=== PATIENT | female | born 1965 | race Caucasian/White ===

== ENCOUNTER 2020-04-25 13:40 | Emergency (ER) | payer MEDICAID, SELFPAY ==
[2020-04-25 14:04] VITALS: BP 218/118; PULSE 87; RESP 18; TEMP 36.8; O2SAT 100; BMI 23.8
--- NOTE | 2020-04-25 14:14 | W.ED.ABDPA2 ---
Documented by User: LILO Burns 04/25/20 16:46 HPI - Abdominal Pain General: Chief Complaint: Abdominal Pain Stated Complaint: abd pain Time Seen by Provider: 04/25/20 13:44 History of Present Illness: HPI narrative: Patient complains about upper epigastric pain and diarrhea and not able to eat for the last couple days. Said that she was told she had a sluggish gallbladder a few years ago but is never followed up on that. Patient also has a history of uterine polyps and said never anything done about that . Patient also states that she has been having vaginal bleeding for weeks and that before then she had regular periods .she says that smoking irritates her abdominal pain. MD elicited complaint: abdominal pain Onset (ago): day(s) Pain Consistency: constant Location: Epigastric Severity: severe Quality: aching and sharp Migration to: no migration Exacerbating factors: eating Relieving factors: nothing Associated Symptoms: Reports diarrhea; Denies chills and fever(s) Review of Systems Const: Denies: fever(s), chills or body aches Eyes: Denies: change in vision or blurry vision ENMT: Denies: throat pain or nasal congestion Card: Denies: chest pain or dyspnea on exertion Resp: Denies: dyspnea, productive cough or non-productive cough GI: Reports: abdominal pain and diarrhea Musc: Denies: extremity pain Skin/Breast: Denies: rash Neuro: Denies: headache(s) Psych: Denies: anxiety or depression Supa/Lymph: Denies: easy bruising Physical Exam Const: COMMON NORMALS: no acute distress, average body habitus and patient oriented x3 HENMT: COMMON NORMALS: normocephalic HEAD & SCALP: normal to inspection and normocephalic FACE & SINUS: normal facial exam Eye: COMMON NORMALS: conjunctivae normal GENERAL EYE: appearance normal, both eyes and all related structures CONJUNCTIVA: Yes conjunctivae normal Neck/C-Spine: COMMON NORMALS: no JVD Chest: COMMONS NORMALS: normal inspection of the chest Resp: COMMON NORMALS: normal respiratory effort and clear to auscultation bilaterally AUSCULTATION: clear to auscultation bilaterally Cardio: COMMON NORMALS: no JVD, regular rate and regular rhythm RATE: regular rate RHYTHM: regular rhythm GI: COMMON NORMALS: Normal to inspection, nondistended, normoactive bowel sounds present PALPATION: Yes Tenderness to palpation present (GI) (Epigastric) Extremity: COMMON NORMALS: normal to inspection and full ROM Neuro: COMMON NORMALS: patient oriented x3 Course Vital Signs: Vital signs: Vital Signs Temperature 98.2 F 04/25/20 14:04 Pulse Rate 73 04/25/20 17:27 Respiratory Rate 18 04/25/20 14:04 Blood Pressure 219/87 04/25/20 17:27 Pulse Oximetry 99 04/25/20 17:27 MDM - Abdominal Pain MDM Narrative: Medical decision making narrative: Discussed ultrasound results with patient gallbladder looks fine discussed maybe need for gallbladder function test again. Also ultrasound of pelvis uterus shows thickened endometrium talked to her about to follow-up with her family medical provider and seen about given some medication help stop with her continued bleeding and and go over menopause symptoms with her. Talk to patient about the need possibly be on proton pump inhibitor and possibility of an ulcer and possible need EGD done. Turn care over to LILO Liu patient waiting CAT scan presently Lab Data: Labs: Lab Results 04/25/20 04/25/20 04/25/20 Range/Units 14:30 14:30 14:59 WBC 12.4 H (4.0-10.0) 10^3/ uL RBC 6.32 H (4.1-5.3) 10^6/u L Hgb 17.4 H (11.5-15.3) g/dL Hct 52.5 H (37.0-47.0) % MCV 83.1 (81-99) fL MCH 27.5 L (28.0-34.0) pg MCHC 33.1 (30.0-36.0) g/dL RDW 13.8 (12.1-15.1) % Plt Count 349 (130-400) 10^3/c mm MPV 9.7 (7.4-10.4) fL Neut % (Auto) 77.9 % Lymph % (Auto) 15.6 % [place] % (Auto) 4.2 % Eos % (Auto) 1.8 % Baso % (Auto) 0.3 % Neut # (Auto) 9.68 H (1.8-7.7) 10^3/u L Lymph # (Auto) 1.9 (0.8-4.8) 10^3/u L [place] # (Auto) 0.5 (0.2-0.9) 10^3/u L Eos # (Auto) 0.2 (0.0-0.8) 10^3/u L Baso # (Auto) 0.0 (0.0-0.1) 10^3/u L Nucleated RBC % (a uto) 0 % Nucleated RBCs # 0.0 /100WBC Sodium 143 (136-145) mmol/L Potassium 3.7 (3.5-5.1) mmol/L Chloride 105 (98-107) mmol/L Carbon Dioxide 28 (22-29) mmol/L Anion Gap 13.7 (5-19) BUN 18 (6-20) mg/dL Creatinine 0.8 (0.5-0.9) mg/dL GFR Calculation 75.3 L (90-130) mL/min Glucose 129 H (65-115) mg/dL Calculated Osmolal ity 294 (285-295) mOsm/k g Calcium 10.2 (8.5-10.5) mg/dL Total Bilirubin 0.6 (0.15-1.2) mg/dL AST 10 (0-32) U/L ALT 11 (0-33) U/L Alkaline Phosphata se 72 (35-105) IU/L Total Protein 8.0 (6.6-8.7) g/dL Albumin 4.7 (3.5-5.2) g/dL Globulin 3.3 (1.3-4.6) g/dL Lipase 43 (13-60) U/L HCG, Qual Negative (Negative) Urine Color (Yellow) Urine Appearance (CLEAR) Urine pH (5-7) Ur Specific Gravit y (1.005-1.030) Urine Protein (Negative) Urine Glucose (UA) (Normal) Urine Ketones (Negative) Urine Blood (Negative) Urine Nitrate (Negative) Urine Bilirubin (NEGATIVE) Urine Urobilinogen (Negative) mg/dL Ur Leukocyte Mary ase (Negative) Urine RBC (0-2) /hpf Urine WBC (0-5) /hpf Ur Squamous Epith Cells (0-5) Amorphous Sediment Urine Bacteria (NONE) Urine Mucus Blood Type Rho(D) Type Antibody Screen Crossmatch 04/25/20 04/25/20 Range/Units 14:59 15:37 WBC (4.0-10.0) 10^3/ uL RBC (4.1-5.3) 10^6/u L Hgb (11.5-15.3) g/dL Hct (37.0-47.0) % MCV (81-99) fL MCH (28.0-34.0) pg MCHC (30.0-36.0) g/dL RDW (12.1-15.1) % Plt Count (130-400) 10^3/c mm MPV (7.4-10.4) fL Neut % (Auto) % Lymph % (Auto) % [place] % (Auto) % Eos % (Auto) % Baso % (Auto) % Neut # (Auto) (1.8-7.7) 10^3/u L Lymph # (Auto) (0.8-4.8) 10^3/u L [place] # (Auto) (0.2-0.9) 10^3/u L Eos # (Auto) (0.0-0.8) 10^3/u L Baso # (Auto) (0.0-0.1) 10^3/u L Nucleated RBC % (a uto) % Nucleated RBCs # /100WBC Sodium (136-145) mmol/L Potassium (3.5-5.1) mmol/L Chloride (98-107) mmol/L Carbon Dioxide (22-29) mmol/L Anion Gap (5-19) BUN (6-20) mg/dL Creatinine (0.5-0.9) mg/dL GFR Calculation (90-130) mL/min Glucose (65-115) mg/dL Calculated Osmolal ity (285-295) mOsm/k g Calcium (8.5-10.5) mg/dL Total Bilirubin (0.15-1.2) mg/dL AST (0-32) U/L ALT (0-33) U/L Alkaline Phosphata se (35-105) IU/L Total Protein (6.6-8.7) g/dL Albumin (3.5-5.2) g/dL Globulin (1.3-4.6) g/dL Lipase (13-60) U/L HCG, Qual (Negative) Urine Color Yellow (Yellow) Urine Appearance Clear (CLEAR) Urine pH 5 (5-7) Ur Specific Gravit y 1.025 (1.005-1.030) Urine Protein Neg (Negative) Urine Glucose (UA) Norm (Normal) Urine Ketones Negative (Negative) Urine Blood 3+ H (Negative) Urine Nitrate Negative (Negative) Urine Bilirubin Neg (NEGATIVE) Urine Urobilinogen 1 H (Negative) mg/dL Ur Leukocyte Mary ase Negative (Negative) Urine RBC 0-4 H (0-2) /hpf Urine WBC 0-4 H (0-5) /hpf Ur Squamous Epith Cells 0-4 H (0-5) Amorphous Sediment Not Reportable Urine Bacteria 2+ H (NONE) Urine Mucus 1+ Blood Type A Positive Rho(D) Type Positive Antibody Screen Negative Crossmatch See Detail Discharge Plan Discharge Patient Disposition: Home Clinical Impression: Bulky or enlarged uterus, Gastroenteritis Abdominal pain Qualifiers: Abdominal location: epigastric Qualified Code(s): R10.13 - Epigastric pain Condition: Stable Prescriptions: New Nexium 40 mg capsule,delayed release(DR/EC) 40 mg PO DAILY 56 Days Qty: 56 RF: 0 Imodium A-D 2 mg capsule 2 mg PO Q3H PRN (Reason: loose stool) Qty: 20 RF: 0 No Action Multiple Vitamins Tablet 1 tab PO DAILY RF: 0 Tylenol-Codeine #3 300-30 mg Tablet 1 tab PO PRN RF: 0 Tylenol Extra Strength 500 mg Tablet 1,000 mg PO PRN RF: 0 ibuprofen 200 mg Tablet 800 mg PO PRN RF: 0 Excedrin Migraine 250-250-65 mg Tablet 1 tab PO PRN RF: 0 Discharge Orders: Discharge Order (Routine); Ordered 04/25/20 Ordered By: Alphonse Brunner Referrals: Damian Lizarraga MD [Primary Care Provider] - Discharge Diet: Low Fat Discharge Activity: Increase activity as tolerated Patient Instructions: Uterine Fibroids (ED), Abdominal Pain (ED) Activity Restrictions/Additional Instructions: Follow-up with medical provider as directed. Take medications as prescribed. Return to the ER or your medical provider if condition worsens. Please read and understand discharge instructions. If any questions ask please. Make sure you follow-up with your [facility] to get your uterus looked at. Follow-up with your family medical provider also about the possible stomach ulcer. Try to cut back on smoking. Coding Level of Care Code ED Operating Room Surgical Technician for Chg Fwd Exam Comprehensive Documented by User: LILO Sweet 04/25/20 18:12 HPI - Abdominal Pain General: Chief Complaint: Abdominal Pain Stated Complaint: abd pain Time Seen by Provider: 04/25/20 13:44 Course ED course: 1710, received patient from Alphonse Brunner, family nurse practitioner, awaiting CT report. Plan to release to home on Nexium for possible peptic ulcer disease. Vital Signs: Vital signs: Vital Signs Temperature 98.2 F 04/25/20 14:04 Pulse Rate 73 04/25/20 17:27 Respiratory Rate 18 04/25/20 14:04 Blood Pressure 219/87 04/25/20 17:27 Pulse Oximetry 99 04/25/20 17:27 MDM - Abdominal Pain MDM Narrative: Medical decision making narrative: CT showed fluid-filled bowel loops suggesting gastroenteritis. Reviewed with patient with recommendations for follow-up and treatment. Patient reports understanding agreed to plan. Lab Data: Labs: Lab Results 04/25/20 04/25/20 04/25/20 Range/Units 14:30 14:30 14:59 WBC 12.4 H (4.0-10.0) 10^3/ uL RBC 6.32 H (4.1-5.3) 10^6/u L Hgb 17.4 H (11.5-15.3) g/dL Hct 52.5 H (37.0-47.0) % MCV 83.1 (81-99) fL MCH 27.5 L (28.0-34.0) pg MCHC 33.1 (30.0-36.0) g/dL RDW 13.8 (12.1-15.1) % Plt Count 349 (130-400) 10^3/c mm MPV 9.7 (7.4-10.4) fL Neut % (Auto) 77.9 % Lymph % (Auto) 15.6 % [place] % (Auto) 4.2 % Eos % (Auto) 1.8 % Baso % (Auto) 0.3 % Neut # (Auto) 9.68 H (1.8-7.7) 10^3/u L Lymph # (Auto) 1.9 (0.8-4.8) 10^3/u L [place] # (Auto) 0.5 (0.2-0.9) 10^3/u L Eos # (Auto) 0.2 (0.0-0.8) 10^3/u L Baso # (Auto) 0.0 (0.0-0.1) 10^3/u L Nucleated RBC % (a uto) 0 % Nucleated RBCs # 0.0 /100WBC Sodium 143 (136-145) mmol/L Potassium 3.7 (3.5-5.1) mmol/L Chloride 105 (98-107) mmol/L Carbon Dioxide 28 (22-29) mmol/L Anion Gap 13.7 (5-19) BUN 18 (6-20) mg/dL Creatinine 0.8 (0.5-0.9) mg/dL GFR Calculation 75.3 L (90-130) mL/min Glucose 129 H (65-115) mg/dL Calculated Osmolal ity 294 (285-295) mOsm/k g Calcium 10.2 (8.5-10.5) mg/dL Total Bilirubin 0.6 (0.15-1.2) mg/dL AST 10 (0-32) U/L ALT 11 (0-33) U/L Alkaline Phosphata se 72 (35-105) IU/L Total Protein 8.0 (6.6-8.7) g/dL Albumin 4.7 (3.5-5.2) g/dL Globulin 3.3 (1.3-4.6) g/dL Lipase 43 (13-60) U/L HCG, Qual Negative (Negative) Urine Color (Yellow) Urine Appearance (CLEAR) Urine pH (5-7) Ur Specific Gravit y (1.005-1.030) Urine Protein (Negative) Urine Glucose (UA) (Normal) Urine Ketones (Negative) Urine Blood (Negative) Urine Nitrate (Negative) Urine Bilirubin (NEGATIVE) Urine Urobilinogen (Negative) mg/dL Ur Leukocyte Mary ase (Negative) Urine RBC (0-2) /hpf Urine WBC (0-5) /hpf Ur Squamous Epith Cells (0-5) Amorphous Sediment Urine Bacteria (NONE) Urine Mucus Blood Type Rho(D) Type Antibody Screen Crossmatch 04/25/20 04/25/20 Range/Units 14:59 15:37 WBC (4.0-10.0) 10^3/ uL RBC (4.1-5.3) 10^6/u L Hgb (11.5-15.3) g/dL Hct (37.0-47.0) % MCV (81-99) fL MCH (28.0-34.0) pg MCHC (30.0-36.0) g/dL RDW (12.1-15.1) % Plt Count (130-400) 10^3/c mm MPV (7.4-10.4) fL Neut % (Auto) % Lymph % (Auto) % [place] % (Auto) % Eos % (Auto) % Baso % (Auto) % Neut # (Auto) (1.8-7.7) 10^3/u L Lymph # (Auto) (0.8-4.8) 10^3/u L [place] # (Auto) (0.2-0.9) 10^3/u L Eos # (Auto) (0.0-0.8) 10^3/u L Baso # (Auto) (0.0-0.1) 10^3/u L Nucleated RBC % (a uto) % Nucleated RBCs # /100WBC Sodium (136-145) mmol/L Potassium (3.5-5.1) mmol/L Chloride (98-107) mmol/L Carbon Dioxide (22-29) mmol/L Anion Gap (5-19) BUN (6-20) mg/dL Creatinine (0.5-0.9) mg/dL GFR Calculation (90-130) mL/min Glucose (65-115) mg/dL Calculated Osmolal ity (285-295) mOsm/k g Calcium (8.5-10.5) mg/dL Total Bilirubin (0.15-1.2) mg/dL AST (0-32) U/L ALT (0-33) U/L Alkaline Phosphata se (35-105) IU/L Total Protein (6.6-8.7) g/dL Albumin (3.5-5.2) g/dL Globulin (1.3-4.6) g/dL Lipase (13-60) U/L HCG, Qual (Negative) Urine Color Yellow (Yellow) Urine Appearance Clear (CLEAR) Urine pH 5 (5-7) Ur Specific Gravit y 1.025 (1.005-1.030) Urine Protein Neg (Negative) Urine Glucose (UA) Norm (Normal) Urine Ketones Negative (Negative) Urine Blood 3+ H (Negative) Urine Nitrate Negative (Negative) Urine Bilirubin Neg (NEGATIVE) Urine Urobilinogen 1 H (Negative) mg/dL Ur Leukocyte Mary ase Negative (Negative) Urine RBC 0-4 H (0-2) /hpf Urine WBC 0-4 H (0-5) /hpf Ur Squamous Epith Cells 0-4 H (0-5) Amorphous Sediment Not Reportable Urine Bacteria 2+ H (NONE) Urine Mucus 1+ Blood Type A Positive Rho(D) Type Positive Antibody Screen Negative Crossmatch See Detail Discharge Plan Discharge Patient Disposition: Home Clinical Impression: Bulky or enlarged uterus, Gastroenteritis Abdominal pain Qualifiers: Abdominal location: epigastric Qualified Code(s): R10.13 - Epigastric pain Condition: Stable Prescriptions: New Nexium 40 mg capsule,delayed release(DR/EC) 40 mg PO DAILY 56 Days Qty: 56 RF: 0 Imodium A-D 2 mg capsule 2 mg PO Q3H PRN (Reason: loose stool) Qty: 20 RF: 0 No Action Multiple Vitamins Tablet 1 tab PO DAILY RF: 0 Tylenol-Codeine #3 300-30 mg Tablet 1 tab PO PRN RF: 0 Tylenol Extra Strength 500 mg Tablet 1,000 mg PO PRN RF: 0 ibuprofen 200 mg Tablet 800 mg PO PRN RF: 0 Excedrin Migraine 250-250-65 mg Tablet 1 tab PO PRN RF: 0 Discharge Orders: Discharge Order (Routine); Ordered 04/25/20 Ordered By: Alphonse Brunner Referrals: Damian Lizarraga MD [Primary Care Provider] - Discharge Diet: Low Fat Discharge Activity: Increase activity as tolerated Patient Instructions: Uterine Fibroids (ED), Abdominal Pain (ED) Activity Restrictions/Additional Instructions: Follow-up with medical provider as directed. Take medications as prescribed. Return to the ER or your medical provider if condition worsens. Please read and understand discharge instructions. If any questions ask please. Make sure you follow-up with your [facility] to get your uterus looked at. Follow-up with your family medical provider also about the possible stomach ulcer. Try to cut back on smoking. Coding Level of Care Code ED Operating Room Surgical Technician for Roland Fwd Exam Comprehensive
[2020-04-25 14:15] VITALS: O2SAT 99
[2020-04-25] MEDS: lidocaine 2% viscous 15 ML, aluminum-mag hydrox-simethicon 30 ML, sucralfate oral liq 1 GM PO (14:28)
[2020-04-25 14:44] LABS: Basophils % 0.3 %; Eosinophils # 0.2 10^3/uL (0.0-0.8); Eosinophils % 1.8 %; Hematocrit 52.5 % (37.0-47.0); Hemoglobin 17.4 g/dL (11.5-15.3); Lymphocytes # 1.9 10^3/uL (0.8-4.8); Lymphocytes % 15.6 %; Mean Corpuscular HGB Conc 33.1 g/dL (30.0-36.0); Mean Corpuscular Hemoglobin 27.5 pg (28.0-34.0); Mean Corpuscular Volume 83.1 fL (81-99); Mean Platelet Volume 9.7 fL (7.4-10.4); Monocytes # 0.5 10^3/uL (0.2-0.9); Monocytes % 4.2 %; Neutrophils # 9.68 10^3/uL (1.8-7.7); Neutrophils % 77.9 %; Nucleated Red Blood Cells % 0 %; Platelet Count 349 10^3/cmm (130-400); Red Blood Count 6.32 10^6/uL (4.1-5.3); Red Cell Distribution Width 13.8 % (12.1-15.1); White Blood Count 12.4 10^3/uL (4.0-10.0)
[2020-04-25 14:58] LABS: Alanine Aminotransferase 11 U/L (0-33); Albumin Level 4.7 g/dL (3.5-5.2); Alkaline Phosphatase 72 IU/L (35-105); Anion Gap 13.7 (5-19); Aspartate Amino Transferase 10 U/L (0-32); Blood Urea Nitrogen 18 mg/dL (6-20); Calcium 10.2 mg/dL (8.5-10.5); Carbon Dioxide 28 mmol/L (22-29); Chloride 105 mmol/L (98-107); Globulin 3.3 g/dL (1.3-4.6); Glomerular Filtration Rate 75.3 mL/min (90-130); Glucose 129 mg/dL (65-115); Lipase 43 U/L (13-60); Osmolality Calculated 294 mOsm/kg (285-295); Potassium 3.7 mmol/L (3.5-5.1); Sodium 143 mmol/L (136-145); Total Bilirubin 0.6 mg/dL (0.15-1.2)
--- NOTE | 2020-04-25 14:58 | US_ITS ---
WS: [id number] Pelvic ultrasound, 04/25/2020 Clinical Data: bleeding Comparison: None. Findings: The uterus measures 10.51 cm x cm x 8.0 cm. The endometrium is 1.3 cm. No intrauterine or abnormal intrauterine mass is seen. The cervical length is 3.6 cm. The left ovary measures 3.2 cm x 2.5 cm x 2.6 cm with no cysts or masses. The right ovary measures 2.6 cm x 2.4 cm x 2.1 cm with no cysts or masses. US/US pelvic complete* [id number] Impression: 1. Enlarged uterus. 2. Thickened endometrium of 1.34 cm. 3. Bilateral cystic ovaries.
--- NOTE | 2020-04-25 14:58 | US_ITS ---
WS: [id number] Gallbladder ultrasound, 04/25/2020 Clinical Data: pain Comparison: None. Findings: The gallbladder shows no sludge or stone. The wall measures 0.2 cm with no pericholecystic fluid. The common bile duct is 0.5 cm and there are no intrahepatic ductal abnormalities. Liver shows no cysts, masses or dilated intrahepatic ducts. The pancreas is obscured by overlying bowel gas but no cyst, pseudocyst, or evidence of pancreatitis is noted. Right kidney measures 9.9 cm and no cyst, masses or hydronephrosis can be seen. The aorta and inferior vena cava show no vascular abnormalities. US/US gall bladder 16069 Impression: Negative gallbladder and right upper quadrant ultrasound.
--- NOTE | 2020-04-25 14:58 | PC.NURSE ---
pt reports no relief in pain after GI cocktail administration. ED provider aware and pain meds ordered.
[2020-04-25] MEDS: ondansetron 2 mg/ML SDV 2 mL 4 MG IVP (15:01)
[2020-04-25] MEDS: morphine 4 mg/mL SDV 1 mL IVP (15:01)
[2020-04-25 15:11] LABS: Urine Appearance Clear (CLEAR); Urine Color Yellow (Yellow); pH Urine 5 (5-7)
[2020-04-25 15:12] LABS: Add Urine Microscopic? YES; Bilirubin Urine Neg (NEGATIVE); Blood Urine 3+ (Negative); Glucose Urine UA Norm (Normal); Ketones Urine Negative (Negative); Leukocyte Esterase Urine Negative (Negative); Nitrate Urine Negative (Negative); Protein Urine Neg (Negative); Specific Gravity, Urine 1.025 (1.005-1.030); Urobilinogen Urine 1 mg/dL (Negative)
[2020-04-25 15:13] LABS: HCG Qualitative Urine. Negative (Negative)
[2020-04-25 15:29] LABS: Bacteria Urine 2+; Mucus Urine 1+; RBC Urine 0-4 /hpf (0-2); Squamous Epithelial Cell Urine 0-4 (0-5); WBC Urine 0-4 /hpf (0-5)
[2020-04-25 15:31] LABS: Add Urine Culture? Yes
[2020-04-25 15:46] VITALS: BP 166/84; PULSE 69; O2SAT 96
--- NOTE | 2020-04-25 16:17 | PC.NURSE ---
portable ultrasound at bedside
[2020-04-25 16:32] VITALS: BP 208/68; PULSE 70; O2SAT 96
--- NOTE | 2020-04-25 16:36 | CTR_ITS ---
PROCEDURE INFORMATION: Exam: CT Abdomen And Pelvis With Contrast Exam date and time: 04/25/2020 5:09 PM Age: 54 years old Clinical indication: Abdominal pain; Prior surgery; Surgery date: 6+ months; Surgery type: Appy, c-sectx4; Patient HX: C/O epigastric pain and diarrhea TECHNIQUE: Imaging protocol: Computed tomography of the abdomen and pelvis with intravenous contrast. Radiation optimization: All CT scans at this facility use at least one of these dose optimization techniques: automated exposure control; mA and/or kV adjustment per patient size (includes targeted exams where dose is matched to clinical indication); or iterative reconstruction. Contrast material: OMNI 300; Contrast volume: 95 ml; Contrast route: INTRAVENOUS (IV); COMPARISON: US pelvic complete* [id number] 04/25/2020 4:16 PM RADIATION DOSE METRICS: Total DLP (mGy-cm): 287.69 FINDINGS: Liver: Normal. No mass. Gallbladder and bile ducts: Normal. No calcified stones. No ductal dilation. Pancreas: Normal. No ductal dilation. Spleen: Normal. No splenomegaly. Adrenals: Normal. No mass. Kidneys and ureters: Subcentimeter hypodensity in the inferior left kidney is too small to characterize but most likely a cyst. No follow-up is recommended. The right kidney is normal. No calculus or obstructive uropathy. Stomach and bowel: Scattered fluid throughout the colon to the rectum, consistent with diarrhea. There are some fluid-filled loops of distal small bowel measuring up to 2.5 cm without evidence for obstruction. The remainder of the stomach and small bowel are unremarkable. Appendix: The appendix is absent. Intraperitoneal space: Unremarkable. No free air. No significant fluid collection. Vasculature: Unremarkable. No abdominal aortic aneurysm. Lymph nodes: Unremarkable. No enlarged lymph nodes. Bladder: Unremarkable as visualized. Reproductive: 7.2 cm inhomogenous enhancing mass in the uterus. The ovaries are normal. Bones/joints: Mild degenerative changes of the lumbar spine. No compression fracture. Soft tissues: Unremarkable. CT/CT abdomen pelvis w con* [id number] IMPRESSION: 1. Fluid filled distal small bowel and fluid in the colon is consistent with mild enterocolitis and diarrhea. 2. 7.2 cm uterine fibroid. COMMENTS: Consistent with the [employer]'s Incidental Findings Committee white paper (J Am Walt Radiol 2018): Any incidental renal lesion less than 1.0 cm or classified as too small to characterize, or any incidental cystic renal lesion characterized as simple-appearing, is likely benign. No follow-up imaging is recommended for these lesions per consensus recommendations based on imaging criteria. Radiation Dose CTDIVOL = (mGy): DLP = 287.69 (mGy-cm)
[2020-04-25] MEDS: iohexol 300 mg/mL 100 mL Btl IV (17:15)
[2020-04-25] MEDS: morphine 4 mg/mL SDV 1 mL IM (17:24)
[2020-04-25 17:27] VITALS: BP 219/87; PULSE 73; O2SAT 99
[2020-04-25 18:30] VITALS: BP 194/91; PULSE 67; O2SAT 96
== END 2020-04-25 18:30 | disposition home or self-care (01) ==
PROVIDERS: Emergency Provider Nurse Practitioner Family; PCP Family Medicine
DX: N85.2 Hypertrophy of uterus (principal); K52.9 Noninfective gastroenteritis and colitis, unspecified
CPT/HCPCS: 12345; 36415; 74177; 76705; 76856; 80053; 81001; 81025; 83690; 85025; 86850; 86900; 86920; 87086; 96372; 96374; 96375; 99283; 99284; J2270; J2405; Q9967

== ENCOUNTER → 2020-08-08 10:00 | Outpatient (BNVA) | payer MEDICAID, SELFPAY | PROVIDERS: PCP Family Medicine; Visit Provider Obstetrics & Gynecology | DX: N93.8 Other specified abnormal uterine and vaginal bleeding (principal) | CPT/HCPCS: 83001; 84146; 84443; 84702; 85025 ==

== ENCOUNTER → 2020-08-12 10:53 | Outpatient (BNVA) | payer MEDICAID, SELFPAY | PROVIDERS: PCP Family Medicine; Visit Provider Obstetrics & Gynecology | DX: D25.9 Leiomyoma of uterus, unspecified (principal); N83.201 Unspecified ovarian cyst, right side | CPT/HCPCS: 76830 ==

== ENCOUNTER → 2020-09-04 14:23 | Outpatient (BNVA) | payer MEDICAID, SELFPAY | PROVIDERS: PCP Family Medicine; Visit Provider Obstetrics & Gynecology | DX: Z01.812 Encounter for preprocedural laboratory examination (principal) | CPT/HCPCS: 81025; 88305 ==

== ENCOUNTER 2020-09-12 11:32 | Outpatient (CLI) | payer MEDICAID, SELFPAY ==
--- NOTE | 2020-09-12 11:38 | MR_ITS ---
WS: [id number] MRI HEAD WITH CONTRAST TECHNIQUE: Sagittal T1, T2 axial, T2 axial FLAIR, axial susceptibility weighted imaging, axial diffus ion weighted images, and coronal T2 images were obtained. Pre and post-T1 axial and post T1 coronal i mages. ADC and FSPGR images. CLINICAL INFORMATION: DIPLOPIA COMPARISON: None. FINDINGS: No evidence of restricted diffusion to suggest acute ischemia. Ventricular system and basal cisterns are patent. Moderate periventricular supratentorial white matter changes with periventricular lacunar infarcts in the right mcneil radiata and periventricular white matter. Findings likely due to small vessel changes. Mild small vessel changes in the varun. Mild parenchymal volume loss. Normal posterior fossa. Normal v ascular flow voids at the skull base. No extra-axial fluid collections. Bilateral mastoid effusions. Paranasal sinuses are well aerated. No hemosiderin on susceptibly weighted images. Normal optic chiasm and pituitary infundibulum. No abn ormal intracranial enhancement. Normal dural venous sinuses. MR/MR head wo/w con [id number] IMPRESSION: 1. No evidence of restricted diffusion to suggest acute ischemia. 2. Moderate supratentorial white matter changes mainly in a periventricular an d subcortical location likely due to small vessel changes. 3. Chronic periventricular lacunar infarcts in the right greater than left cor sudheer radiata and periventricular white matter. 4. Mild parenchymal volume loss. 5. Bilateral mastoid effusions. 6. No abnormal gadolinium enhancement. 7. No hemosiderin on susceptibly weighted images. 8. Normal optic chiasm and pituitary infundibulum.
== END 2020-09-12 11:33 | disposition home or self-care (01) ==
LOC: RADSHAW 11:36
PROVIDERS: PCP Physician Assistant; Visit Provider Physician Assistant
DX: H53.2 Diplopia (principal); G93.6 Cerebral edema; I63.81 Other cerebral infarction due to occlusion or stenosis of small artery
CPT/HCPCS: 70553; A9579

== ENCOUNTER → 2020-11-13 10:22 | Outpatient (BNVA) | payer MEDICAID, SELFPAY | PROVIDERS: PCP Physician Assistant; Visit Provider Obstetrics & Gynecology | DX: D25.0 Submucous leiomyoma of uterus (principal); Z11.52 Encounter for screening for COVID-19; D25.1 Intramural leiomyoma of uterus; D25.2 Subserosal leiomyoma of uterus; N95.0 Postmenopausal bleeding | CPT/HCPCS: 87635 ==

== ENCOUNTER 2020-11-19 15:02 | Inpatient (IN) | payer MEDICAID, SELFPAY ==
[2020-11-17 10:36] VITALS: BMI 24.5
--- NOTE | 2020-11-17 10:55 | ANES.PREANE2 ---
Pre-Anesthetic Assessment Pre-Anesthetic Assessment: Height/Weight: Height 1.57 m Weight 60.781 kg Preop Diagnosis: fibroid Proposed Procedure: Operation Date: 11/19/20 10:50 Proposed Procedures p Laparoscopic Assist Vaginal Hystectomy 00682 r10.2 n95.0 d25.9(Not Applicable) - Jamie Florez MD Familial anesthetic complications: NOne Social: Social History: Tobacco and No alcohol Exam: Pre-Anes Outpt Exam: alert, oriented x 3, clear to auscultation bilaterally and regular rate & rhythm Airway: Cervical ROM: WNL MP: 2 Dentition: Other (top plate) Pulmonary: Pulmonary: Sleep apnea (states she snores loudly and her kids tell her she stops breathing at night) CV/HEM: CV/HEM: HTN Neuropsych: Neuropsych: CVA (seen on MRI ( no symptoms and unknown date of occurence)) Anesthetic Plan: ASA status: 3 Anesthesia: General Risk of > 500 ml blood loss (7ml/kg in children): No PFSH Anesthesia PFSH: Family History Grandfather Diabetes maternal Hypertension maternal and paternal Stroke maternal Grandmother Hypertension maternal and paternal Father Hypertension Mother Hypertension Heart disease Uterine cancer, Onset Age: 38 Brother Heart disease Family/Other Breast cancer, Onset Age: 42 maternal 1st cousin Denies family history of Colon cancer Ovarian cancer Clotting disorder Hyperlipidemia Anesthesia complication Bleeding disorder Thyroid condition Social History (Updated 09/19/20 @ 14:30 by Ro Zambrano RN) Smoking and tobacco status: current every day smoker cigarettes [ Other cigarette details: 3 cigarettes/day ] Alcohol intake: never Data Anesthesia Cardiac Studies: No Data to Display
[2020-11-19] VITALS (20 sets, daily range): BP systolic 100–154; BP diastolic 60–87; PULSE 77–92; RESP 16–20; TEMP 36.3–36.8; O2SAT 94–100
[2020-11-19 09:40] LABS: OR HCG Qualitative Urine Negative (Negative)
[2020-11-19] MEDS: scopolamine 1.5 Patch 1 PATCH TRANSDERMA (09:52)
[2020-11-19 09:59] LABS: Urine Appearance Clear (CLEAR); Urine Color Yellow (Yellow); pH Urine 5 (5-7)
[2020-11-19 10:00] LABS: Add Urine Microscopic? YES; Bilirubin Urine Neg (Negative); Blood Urine 2+ (Negative); Glucose Urine UA Norm (Normal); Ketones Urine Negative (Negative); Leukocyte Esterase Urine Negative (Negative); Nitrate Urine Negative (Negative); Protein Urine Neg (Negative); Urobilinogen Urine Norm (Negative)
[2020-11-19 10:06] LABS: Basophils % 0.4 %; Eosinophils # 0.3 10^3/uL (0.0-0.8); Eosinophils % 2.6 %; Hematocrit 45.3 % (37.0-47.0); Lymphocytes # 2.7 10^3/uL (0.8-4.8); Lymphocytes % 23.9 %; Mean Corpuscular HGB Conc 33.1 g/dL (30.0-36.0); Mean Corpuscular Volume 84.5 fL (81-99); Mean Platelet Volume 10.2 fL (7.4-10.4); Monocytes # 0.7 10^3/uL (0.2-0.9); Monocytes % 5.7 %; Neutrophils # 7.63 10^3/uL (1.8-7.7); Neutrophils % 67.1 %; Nucleated Red Blood Cells % 0 %; Platelet Count 329 10^3/cmm (130-400); Red Blood Count 5.36 10^6/uL (4.1-5.3); Red Cell Distribution Width 12.8 % (12.1-15.1); White Blood Count 11.4 10^3/uL (4.0-10.0)
[2020-11-19] MEDS: sodium chloride 0.9% 500 ML IV (10:06)
[2020-11-19 10:10] LABS: Bacteria Urine TRACE /hpf; RBC Urine 0-4 /hpf (0-2); Squamous Epithelial Cell Urine 0-4 /hpf (0-5)
[2020-11-19 10:11] LABS: Add Urine Culture? No
[2020-11-19 10:53] LABS: Alanine Aminotransferase 27 U/L (0-33); Albumin Level 4.6 g/dL (3.5-5.2); Alkaline Phosphatase 81 IU/L (35-105); Blood Urea Nitrogen 13 mg/dL (6-20); Calcium 9.8 mg/dL (8.5-10.5); Carbon Dioxide 27 mmol/L (22-29); Chloride 103 mmol/L (98-107); Globulin 3.4 g/dL (1.3-4.6); Glomerular Filtration Rate 129.1 mL/min (90-130); Glucose 95 mg/dL (65-115); Osmolality Calculated 294 mOsm/kg (285-295); Sodium 142 mmol/L (136-145); Total Bilirubin 0.6 mg/dL (0.15-1.2)
[2020-11-19] MEDS: sodium chloride 0.9% 1,000 ML 30 ML IV (10:53)
--- NOTE | 2020-11-19 11:08 | W.PM.OPSUD ---
Surgery/Procedure H&P Update DATE OF PROCEDURE: November 19, 2020 DATE H&P PERFORMED: 11/17/20 H&P UPDATE INFORMATION: I have reviewed H&P completed within last 30 days, I have examined patient prior to procedure and No changes to prior documentation PREOP DIAGNOSIS: Postmenopausal bleeding, chronic pelvic pain, uterine fibroid, stress urina PLANNED PROCEDURE: Operation Date: 11/19/20 10:50 Proposed Procedures p Laparoscopic Assist Vaginal Hystectomy 08542 r10.2 n95.0 d25.9(Not Applicable) - Jamie Florez MD
[2020-11-19] MEDS: ceFOXitin 2,000 MG in sodium chloride 0.9% (plus) 50 ML 100 MG IV (11:21)
[2020-11-19 11:29] LABS: Aspartate Amino Transferase 19 U/L (0-32)
--- NOTE | 2020-11-19 12:23 | SUR.OPER ---
1209 surgery converted to open case.
[2020-11-19] MEDS: sodium chloride 0.9% SDV 10 mL 20 ML (13:47)
--- NOTE | 2020-11-19 13:58 | P.OP_ITS ---
Operative Report Date of procedure: November 19, 2020 Pre-op Diagnosis: Postmenopausal bleeding, chronic pelvic pain, uterine fibroid, stress urina
--- NOTE | 2020-11-19 13:59 | P.OP_ITS ---
Operative Report Date of procedure: November 19, 2020 Pre-op Diagnosis: Postmenopausal bleeding, chronic pelvic pain, uterine fibroid, stress urina Post-op diagnosis: same Procedure Done: Diagnostic Laparoscopy Total abdominal hysterectomy with bilateral salpingo-oophorectomy mid urethral sling Cystoscopy Specimens removed/disposition: Uterus, left and right fallopian tubes and ovaries Pathology: Uterus, left and right fallopian tubes and ovaries Surgeon: Jamie Florez MD Anesthesia: General Estimated blood loss (mL): 150 IV fluids (mL): 1,800 Urine output (mL): 400 Complications: None Condition: stable Disposition: PACU Brief History: 55-year-old female with postmenopausal bleeding, chronic pelvic pain unresponsive to medical management , uterine fibroid and stress urinary incontinence. Procedure: After informed consent, the patient was taken to the operating room where general anesthesia was administered. The patient was examined under anesthesia and found to have a normal uterus with normal adnexa. She was placed in the dorsal lithotomy position and prepped and draped in sterile fashion. Pre- Procedure Time-Out verifying the correct patient identity, correct procedure verified with consent, correct site and side, correct patient position, availability of correct implants and any special equipment or requirements was performed and acknowledge by the OR team. A weighted speculum was placed in the vagina, and the anterior lip of cervix was grasped with the single toothed tenaculum. A uterine manipulator was advanced into the endocervical. Tenaculum was removed after uterine manipulator was secured. The speculum was removed from the vagina. An intraumbilical incision was made with a scalpel. While tenting up on the abdomen, a Verres needle with sleeve was admitted into the intra-abdominal cavity. A saline drop test was performed and noted to be within normal limits. Pneumoperitoneum was attained with 4 liters of carbon dioxide. The Verres needle was removed. A 5 mm trocar and sleeve were admitted into the abdomen and laparoscopic confirmation of location was achieved, A second incision was made 3 cm above the symphysis pubis, and a 5 mm trocar and sleeve were admitted into the abdomen under direct, laparoscopic visualization without complication. A survey revealed normal abdominal anatomy but pelvic survey shows a very enlarged irregular uterus distorting anatomy, with bladder adhesions. Left and right adnexa normal. The desicion for safety and distorted anatomy to proceed with abdominal histerectomy. The patietnn was aware of the possibility of converting the laparoscopic assisted vaginal hysterectomy to abdominal hysterectomy. The patietn had been, prepped and draped in the usual sterile fashion. Subsequently, a Pfannenstiel incision was made and the incision was taken down to the fascia. The fascia was opened up sharply. The fascia was extended to the length of the incision using the Martinez scissors. At this time, the rectus muscles were dissected from the fascia superiorly and inferiorly to the symphysis pubis. The midline rectus muscles were opened sharply and extended superiorly and inferiorly. The peritoneum was visualized, grasped, opened sharply, and extended superiorly and inferiorly towards the bladder. The abdominal contents were packed superiorly away from the operative site using the lap packs. At this time, the pelvic organs were noted. The inferior and superior blades were placed in place on the Meliton self-retaining retractor. Bowel was packed away from the operative site. The fundus of the uterus was then grasped with a triple-tooth tenaculum and retracted out of the pelvic cavity into the abdominal site. At this point, Gely clamps were placed in both right and left adnexal regions. Subsequently, using the Enseal cautery unit, the round ligaments were grasped, cauterized, and dissected. The bladder flap was then formed and the bladder flap was pushed away down anteriorly over the lower uterine segment, pushed away from the operative site on both the right and left sides. Subsequently, the posterior leaf of the broad ligament was opened sharply and the Enseal instrument was then placed below the level of the ovary in both the right and left side, care being taken not to damage bowel or uterus and the infundibulopelvic ligament was then grasped, cauterized, and again dissected. Further dissection of the broad ligament was carried down posteriorly towards the uterine vessels. The bladder was pushed inferiorly down towards the vagina. Subsequently, the uterine vessels were then grasped again with the Enseal device, cauterized, and dissected. The cardinal ligaments were further grasped, dissected, and suture ligated, again with the Enseal device. At that point, the Enseal device instrument was stopped and straight Zeppelin clamps were used on the cardinal ligaments down towards the uterosacral ligaments. The cardinal ligaments were grasped, dissected with a scalpel and then ligated with transfixion sutures with #1 Vicryl suture down to the uterosacral ligaments. The uterosacral ligaments were grasped, dissected, and suture ligated again with #1 Vicryl suture and transfixion sutures. At that time, the bladder had been pushed over the vagina and at this time right-angle Zeppelin clamps were placed on the vagina at the level of the cervix, and using the Joycelyn scissors, the cervix was dissected away from the vagina. At this time, the vaginal cuff was then closed using interrupted sutures of #1 Vicryl suture from the midline to each lateral corner. After the good hemostasis had been achieved in the vaginal cuff, both the right and left adnexa was visualized and no more bleeding was noted. The cuff was intact with no bleeding noted. The bladder was visualized and no bleeding was noted. The Meliton self-retaining retractor was removed as well as the anterior and inferior blades. The lap packs were removed, and at this time, general closure of the abdomen was carried out. The peritoneum was closed with a 2-0 Vicryl suture and continuous running suture. The fascia was closed using a #1 Vicryl suture from each corner to the midline. Subcutaneous tissue was cauterized. No bleeding was noted. The subcutaneous tissue was then reapproximated using plain sutures and interrupted sutures, and the skin was closed using the Insorb subcuticular britton. The incision was the infiltrated with Exparel for pain management. Then proceeded to perform the midurethral sling. A LonsStar vaginal retractor was place. A vertical midline incision was made beneath the midurethra, nearly 1.5 cm [facility]. Careful submucosal dissection was performed bilaterally up to the interior portion of the inferior pubic ramus. The insertion of adductor longus tendon on the patient?s pubic ramus was identified as reference land yanira. Palpated the notch along the internal edge of ischiopubic ramus where the adductor longus tendon and the inferior pubic ramus meet. The Altis single incision sling (SIS) was selected. With thin porcine graft the mesh of the sling was lined anteriorly and posteriorly with the graft. Then the needle of the SIS inserted aiming at the location of this notch. One of the integrated self-fixating tips place onto the needle by sliding it over the end of the needle. The needle/sling assembly was inserted toward the location of identified reference notch making sure that the flat of the handle is perpendicular to the desired path. The needle was tracked along the posterior surface of the ischiopubic ramus until the midline yanira on the mesh is approximately at the midline position under the urethra. The needle was removed and the same was repeated on the contralateral side until the appropriate sling tension under the urethra was achieved ensuring that the mesh lays flat. The patient was given indigo carmine IV. The needle was removed and vaginal incision was closed in a running interlocking fashion with 2-0 Vicryl. Then the Pal catheter was removed and cystoscope was inserted. The bladder was filled with sterile water. Complete evaluation of the bladder mucosa was performed noting no lacerations, dimpling, tears, bleeding of the mucosa or muscular layers. Both ureteral orifices were identified. Prompt excretion of blue urine from both ureteral orifices was noted. Cystoscope was withdrawn. The Pal catheter was replaced. Excellent hemostasis was obtained. Then the Pal catheter bag was noted with blue urine. Sponge, lap, needle, and instrument counts were correct times three. The patient tolerated the procedure well and was transferred to the recovery room in excellent condition. The patient returned to the floor for recovery.
[2020-11-19] MEDS: fentaNYL 50 mcg/mL INJ 2mL IVP (14:33)
[2020-11-19] MEDS: HYDROmorphone 1 mg/mL INJ 1 mL 1.5 MG IVP (15:31)
[2020-11-19] MEDS: dextrose 5%-lactated ringers 1,000 ML 125 ML IV (15:53)
[2020-11-19] MEDS: ketorolac 30 mg/mL INJ IVP ×2 (16:27→21:01)
[2020-11-19] MEDS: HYDROcodone-acetaminophen 5-325 mg Tablet PO (18:27)
[2020-11-19] MEDS: docusate sodium 100 mg Capsule PO (18:28)
--- NOTE | 2020-11-19 20:00 | PC.NURSE ---
Patient reported to this nurse she passed gas. Patient up in room walking to bathroom back to bed without assistance. EMIGDIO SIDDIQUI
--- NOTE | 2020-11-19 20:24 | ANE.PACU2 ---
Inpatient post-anesthesia follow up: Airway intact: Yes Vital signs: Temperature 97.7 F Pulse Rate 81 Respiratory Rate 16 Blood Pressure 115/63 Pulse Oximetry 97 Oxygen Delivery Me thod Room Air Oxygen Flow Rate 1 Fraction of Inspir ed Oxygen Hydration adequate: Yes Nausea and vomiting: No Pain level: 2 Mental status: Baseline
[2020-11-20] MEDS: dextrose 5%-lactated ringers 1,000 ML 125 ML IV (03:47)
[2020-11-20] MEDS: ketorolac 30 mg/mL INJ IVP (03:47)
[2020-11-20 03:50] VITALS: BP 118/72; PULSE 72; RESP 17; TEMP 36.6; O2SAT 93
[2020-11-20 04:52] LABS: Hematocrit 35.1 % (37.0-47.0); Hemoglobin 11.2 g/dL (11.5-15.3); Mean Corpuscular HGB Conc 31.9 g/dL (30.0-36.0); Mean Corpuscular Hemoglobin 28.1 pg (28.0-34.0); Mean Corpuscular Volume 88.2 fL (81-99); Mean Platelet Volume 10.1 fL (7.4-10.4); Platelet Count 242 10^3/cmm (130-400); Red Blood Count 3.98 10^6/uL (4.1-5.3); White Blood Count 15.4 10^3/uL (4.0-10.0)
[2020-11-20] MEDS: HYDROcodone-acetaminophen 5-325 mg Tablet PO ×3 (08:41→20:36)
[2020-11-20] MEDS: hydroCHLOROthiazide 25 mg Tablet PO (08:41)
[2020-11-20] MEDS: docusate sodium 100 mg Capsule PO (08:41)
[2020-11-20] MEDS: ibuprofen 800 mg tablet PO ×2 (08:41→16:38)
[2020-11-20] MEDS: potassium chloride ER 10 mEq Tablet PO (08:41)
[2020-11-20 08:45] VITALS: BP 107/65
[2020-11-20 08:46] VITALS: BP 107/65; PULSE 78; RESP 16; TEMP 36.6; O2SAT 96
[2020-11-20] MEDS: amlodipine 5 mg Tablet PO (08:55)
[2020-11-20] MEDS: atorvastatin 40 mg Tablet 20 MG PO (08:55)
--- NOTE | 2020-11-20 09:47 | PC.NURSE ---
Orders received to discontinue vaginal packing, but upon inspection of vagina, no vaginal packing was found.
--- NOTE | 2020-11-20 10:00 | PM.PN ---
Subjective Subjective: Interval history: 54-year-old female status post total abdominal hysterectomy with BSO and mid urethral sling postoperative day 1 Feeling better, pain under control with medication Vitals/I&O/Wt Last Vital Signs Temp 97.9 F 11/20/20 08:46 Pulse 78 11/20/20 08:46 Resp 16 11/20/20 08:46 BP 107/65 11/20/20 08:46 Pulse Ox 96 11/20/20 08:46 11/19/20 11/20/20 11/20/20 22:59 06:59 14:59 Intake Total 1210 / 3560 960.833 / 960.833 Output Total 1150 / 2700 650 / 3350 500 / 500 Balance -1150 / -350 560 / 210 460.833 / 460.833 Physical Exam Narrative: EXAM NARRATIVE: GA: Alert and oriented ?3. HEENT: WNL. Heart: Regular rate and rhythm. Lungs: Clear to auscultation bilaterally. Abdomen: Bowel sounds present, nontender, minimal tenderness, incision clean and dry, no redness, pain or edema. PHOTOGRAPHER'S ASSISTANT: No bleeding. Extremities: No edema, no cyanosis, no calves pain. Urinary Catheter Management^: Pal: Cath Placed During This Visit: yes, but has since been removed by the nurse Reason for Continuing Indwelling Catheter: Decision to DC Catheter Urinary Catheter Date of Insertion: 11/19/20 Urinary Catheter Time of Insertion: 11:45 Date Urinary Catheter Removed: 11/20/20 Time Urinary Catheter Discontinued: 09:31 Data : 11/20/20 04:36 11/19/20 09:54 A&P Assessment and plan (1) Postmenopausal bleeding: Patient is status post total abdominal hysterectomy with bilateral salpingo-oophorectomy mid urethral sling postoperative day 1, she is afebrile and hemodynamically stable, tolerating diet well, urine output adequate, ambulating without difficulty. Anticipate discharge tomorrow. Status: Acute (2) JOHN (stress urinary incontinence, female): Status: Acute (3) Uterine fibroid: Status: Acute Qualifiers: Uterine leiomyoma location: intramural, submucous, and subserous Qualified Code(s): D25.1 - Intramural leiomyoma of uterus; D25.0 - Submucous leiomyoma of uterus; D25.2 - Subserosal leiomyoma of uterus [facility] Necessity Statement*: In my professional opinion per admitting diagnosis Coding Level of Care Code Acute [employer] for Chg Fwd Diagnoses Postmenopausal bleeding N95.0 JOHN (stress urinary incontinence, female) N39.3 Uterine fibroid D25.1; D25.0; D25.2 Uterine leiomyoma location: intramural, submucous, and subserous
[2020-11-20 10:02] VITALS: BP 123/65; PULSE 81; RESP 16; TEMP 36.4; O2SAT 95
--- NOTE | 2020-11-20 12:30 | PC.NURSE ---
Notified nutrition - Monica - that patient did not receive lunch or breakfast tray this morning. Patient was provided a breakfast tray with an extra tray that was available, but does not have a lunch tray. Monica stated she had made a tray for the patient, and it included the Pepsi that the patient requested. Monica is going to make another tray for the patient since she didn't receive the tray that was made for her.
[2020-11-20 15:47] VITALS: BP 117/70; PULSE 77; RESP 15; TEMP 36.8; O2SAT 94
[2020-11-20 22:51] VITALS: BP 105/68; PULSE 70; RESP 16; TEMP 36.7; O2SAT 95
[2020-11-21] MEDS: ibuprofen 800 mg tablet PO ×2 (00:41→17:04)
[2020-11-21] MEDS: HYDROcodone-acetaminophen 5-325 mg Tablet PO ×3 (02:49→17:04)
[2020-11-21 03:40] VITALS: BP 121/73; PULSE 70; RESP 16; TEMP 36.8; O2SAT 95
[2020-11-21 09:18] VITALS: BP 122/75; PULSE 83; RESP 16; TEMP 36.9; O2SAT 95
[2020-11-21] MEDS: docusate sodium 100 mg Capsule PO (09:39)
[2020-11-21] MEDS: potassium chloride ER 10 mEq Tablet PO (09:40)
[2020-11-21] MEDS: hydroCHLOROthiazide 25 mg Tablet PO (09:40)
--- NOTE | 2020-11-21 16:55 | PM.OBGYDC ---
Discharge Providers SPECIAL EDUCATION CASE MANAGER Date of Admission: 11/19/20 15:02 Date of Discharge: 11/21/20 Attending Provider at Admission: Jamie Florez MD Attending Provider at Discharge: Jamie Florez MD Primary Care Provider: Gely Craig Diagnoses at Discharge Discharge Diagnosis (1) Postmenopausal bleeding: Status: Acute (2) JOHN (stress urinary incontinence, female): Status: Acute (3) Uterine fibroid: Status: Acute Qualifiers: Uterine leiomyoma location: intramural, submucous, and subserous Qualified Code(s): D25.1 - Intramural leiomyoma of uterus; D25.0 - Submucous leiomyoma of uterus; D25.2 - Subserosal leiomyoma of uterus Reason for Visit Reason for Visit: Laparoscopic Assist Vaginal Hystectomy 53584 r10.2 Hospital Course Hospital Course 55-year-old female with a history of postmenopausal bleeding, uterine fibroid and urinary stress incontinence. Admitted for planned laparoscopic-assisted vaginal hysterectomy with bilateral oophorectomy due to previous deliveries x3. During initial laparoscopic evaluation due to the uterine size with an enlarged irregular uterus distorting anatomy and pelvic adhesions the decision was made to proceed with an open abdominal hysterectomy. Total abdominal hysterectomy with bilateral salpingo-oophorectomy was performed without complications then followed by a mid urethral sling without complication. Postop recovery has been uneventful. Pain under control with medication. Patient ambulating without difficulty. Tolerating diet well. Had a bowel movement. Physical Exam Narrative: EXAM NARRATIVE: GA: Alert and oriented ?3. HEENT: WNL. Heart: Regular rate and rhythm. Lungs: Clear to auscultation bilaterally. Abdomen: Bowel sounds present, nontender, minimal tenderness, incision clean and dry, no redness, pain or edema. SALES PROMOTION MANAGER: No bleeding. Extremities: No edema, no cyanosis, no calves pain. Urinary Catheter Management^: Pal: Cath Placed During This Visit: yes, but has since been removed by the nurse Reason for Continuing Indwelling Catheter: Decision to DC Catheter Urinary Catheter Date of Insertion: 11/19/20 Urinary Catheter Time of Insertion: 11:45 Date Urinary Catheter Removed: 11/20/20 Time Urinary Catheter Discontinued: 09:31 Discharge Data Data Completed and Pending: Pending at discharge Category Date Time Status ES surgery / GI i mages Routine Exams 11/19/20 10:54 Taken Pathology: Surgic al [PTH] Routine Pth 11/19/20 13:46 Received Vitals: Last Vital Signs Temp 98.5 F 11/21/20 09:18 Pulse 83 11/21/20 09:18 Resp 16 11/21/20 09:18 BP 122/75 11/21/20 09:18 Pulse Ox 95 11/21/20 09:18 Discharge Plan Discharge Patient Disposition: Home Condition: Stable Prescriptions: New hydrocodone-acetaminophen 7.5-300 mg tablet 1 tab PO Q6H Qty: 30 RF: 0 acetaminophen 325 mg capsule 325 mg PO Q4H PRN (Reason: fever or pain) Qty: 60 RF: 0 ferrous sulfate 325 mg (65 mg iron) tablet 325 mg PO BID Qty: 60 RF: 0 Continued ibuprofen 600 mg tablet 600 mg PO TID PRN (Reason: pain) Qty: 60 RF: 0 potassium chloride [Klor-Con 10] 10 mEq tablet extended release 10 meq PO DAILY RF: 0 hydrochlorothiazide 25 mg tablet 25 mg PO DAILY RF: 0 amlodipine 5 mg tablet 5 mg PO DAILY RF: 0 atorvastatin 10 mg tablet 10 mg PO DAILY RF: 0 losartan [Cozaar] 100 mg tablet 100 mg PO DAILY RF: 0 Excedrin Migraine 250-250-65 mg Tablet 1 tab PO PRN RF: 0 Discharge Orders: Discharge Order (Routine); Ordered 11/21/20 Ordered By: Jamie Florez Referrals: Jamie Florez MD [Physician] - 2 weeks Discharge Diet: Usual diet Discharge Activity: Increase activity as tolerated Patient Instructions: Abdominal Hysterectomy (DC), OB Abdominal Surgery - [facility], OB Discharge Report, OB Food/Drug Interaction Guide Activity Restrictions/Additional Instructions: 1. Please call [facility] on next working day to make your post-operative appointment in 2 weeks. 2. Please stay home until you come back to the clinic on first post-operative check up. 3. Please follow instructions on your medications CAREFULLY. 4. If you have abdominal incision, do not cover it unless dressing is necessary because of drainage. OK to shower, but avoid bath. Leave steri-strips until they fall off. If they are still on one week after surgery, you may remove them. 5. If you had vaginal surgery, your doctor may instruct you to take SITZ bath. 6. Yellow, blood tinged odorous vaginal discharge is usually normal after hysterectomy or vaginal surgeries. 7. No sexual intercourse, tampons, or douches until you are completely released from the post-operative care. 8. Avoid constipation by eating right and maybe using some Metamucil or Milk of Magnesia. 9. All prescription refills are given during the working hours. Please do no wait till it runs out. Call the clinic at [phone] before your medication runs out. The clinic will get in touch with your doctor to prescribe medications if necessary. 10. Please remain within 40 mile radius from our hospital because emergencies do happen now and then during the post-operative period. 11. If you have stairs at home, take one step at a time slowly and minimize the number of trips. It helps to stay in one floor for the next few days. No lifting except what you can lift by one hand until you are released from the post-operative care. 12. Driving is discouraged until you are well healed. It may be 3-4 weeks before you feel strong enough to drive. You should be able to turn and look through the rear window without pain and you should be able to push the brake pedal very hard without pain before you drive. No fast rules, but SAFETY should be your primary concern. DO NOT drive if you are on sedating medications such as narcotics. 13. Call the clinic (during working hours) to make urgent appointment or go to the Emergency room, if any of the following occurs: i. Vaginal bleeding becomes heavy, more than a period. ii. Incision becomes red and sore, or drains pus. iii. Your temperature is over 100.4 or you have chill. iv. IV site becomes red and swollen (a little ``knot?? is usually OK) v. Persistent nausea and vomiting vi. Persistent constipation or diarrhea vii. Rash or allergic reaction to medications. Discharge Attestations SPECIAL EDUCATION CASE MANAGER Time Spent in Discharge Care*: greater than 30 min Coding Level of Care Code Acute Assistant Professor Of Economics for g Fwd Diagnoses Postmenopausal bleeding N95.0 JOHN (stress urinary incontinence, female) N39.3 Uterine fibroid D25.1; D25.0; D25.2 Uterine leiomyoma location: intramural, submucous, and subserous
[2020-11-21 17:15] VITALS: BP 123/74; PULSE 69; RESP 15; TEMP 36.5; O2SAT 96
== END 2020-11-21 17:23 | disposition home or self-care (01) | DRG 743 ==
LOC: OBGYN 15:03
PROVIDERS: Admitting Provider Obstetrics & Gynecology; PCP Physician Assistant; Visit Provider Obstetrics & Gynecology
PROC: 0UT90ZZ Resection of Uterus, Open Approach (ICD-10-PCS; CPT 58150; 2020-11-19 10:40)
PROC: 0UT90ZZ Resection of Uterus, Open Approach (ICD-10-PCS; CPT 57288; 2020-11-19 10:40)
PROC: 0TJB8ZZ Inspection of Bladder, Via Natural or Artificial Opening Endoscopic (ICD-10-PCS; CPT 52000; 2020-11-19 10:40)
DX: N95.0 Postmenopausal bleeding (principal); N39.3 Stress incontinence (female) (male); D25.1 Intramural leiomyoma of uterus; D25.0 Submucous leiomyoma of uterus; D25.2 Subserosal leiomyoma of uterus; R10.2 Pelvic and perineal pain; G89.29 Other chronic pain; I10 Essential (primary) hypertension; F17.210 Nicotine dependence, cigarettes, uncomplicated; Z79.1 Long term (current) use of non-steroidal anti-inflammatories (NSAID); Z53.31 Laparoscopic surgical procedure converted to open procedure; Z79.82 Long term (current) use of aspirin
CPT/HCPCS: 36415; 51798; 80053; 81001; 81025; 84703; 85025; 85027; 86850; 86900; 88307; 96365; C1713; C9290; J0694; J1100; J1170; J1885; J2250; J2405; J2550; J2704; J2710; J3010; J3490; J7030; J7040

== ENCOUNTER 2021-02-26 09:56 | Outpatient (CLI) | payer MEDICAID, SELFPAY ==
--- NOTE | 2021-02-26 10:11 | USCV_ITS ---
Aaron Asha Age: 55 Gender: F : 1965 Exam Date: 02/26/2021 10:08 Ordering Phys: Damian Lizarraga MD Technologist: Gely Arenas [place]am [place] [facility] [place] [facility] [place] Indication: CLAUDICATION RIGHT LEFT Brachial 176.00 mmHg Brachial 171.00 mmHg Pressure (mmHg) Waveform Pressure (mmHg) Waveform N/A CENTRAL SUPPLY MANAGER 168.00 168.00 DPA 147.00 0.95 Ankle/Brachial Index 0.95 89.00 Pre-Exercise Toe Pressure 101.00 0.51 Pre-Exercise Toe/Brachial Index 0.57 FINDINGS Near normal resting ABIs bilaterally Slightly diminished resting TBI's bilaterally CONCLUSIONS Features of mild peripheral artery disease bilaterally Consider exercise LOLA to better evaluate the functional status, if clinically indicated Dr Nickie Grubbs MD FACC (Electronically Signed) Final Date: 27 February 2021 08:28 S
== END 2021-02-26 09:57 | disposition home or self-care (01) ==
LOC: US 09:59
PROVIDERS: PCP Family Medicine; Visit Provider Family Medicine
DX: I73.9 Peripheral vascular disease, unspecified (principal)
CPT/HCPCS: 93922

== ENCOUNTER 2021-07-13 20:00 | Outpatient (CLI) | payer MEDICAID, SELFPAY | END 2021-07-13 20:01 | disposition home or self-care (01) | LOC: SLEEP 07-14 10:12 | PROVIDERS: PCP Family Medicine; Visit Provider Anesthesiology Pain Medicine | DX: G47.10 Hypersomnia, unspecified (principal); R06.83 Snoring; R53.83 Other fatigue; G47.33 Obstructive sleep apnea (adult) (pediatric) | CPT/HCPCS: 95810 ==

== ENCOUNTER 2021-08-12 20:00 | Outpatient (CLI) | payer MEDICAID, SELFPAY | END 2021-08-12 20:01 | disposition home or self-care (01) | LOC: SLEEP 08-13 07:19 | PROVIDERS: PCP Family Medicine; Visit Provider Anesthesiology Pain Medicine | DX: G47.33 Obstructive sleep apnea (adult) (pediatric) (principal) | CPT/HCPCS: 95811 ==

== ENCOUNTER 2021-10-19 09:19 | Outpatient (CLI) | payer MEDICAID, SELFPAY ==
--- NOTE | 2021-10-19 09:25 | MR_ITS ---
WS: [id number] MRI LUMBAR SPINE NONCONTRAST TECHNIQUE: Sagittal T1, T2 and STIR imaging. Axial T1 and T2 imaging. CLINICAL INFORMATION: VERTEBROGENIC LOW BACK PAIN COMPARISON: None. FINDINGS: Mild lumbar curve. No acute compression. No high-grade central canal stenosis. L1-L2: Small shallow LEFT pericentral protrusion. Tiny annular fissure. Slight narrowing of the LEFT subarticular recess. Spinal canal and foramen are patent. L2-L3: Mild annular bulging. Slight effacement of the ventral thecal sac. Spinal canal and foramen ar e patent. L3-L4: Mild annular bulging with slight effacement of ventral thecal sac. Narrowing of the subarticul ar recess bilaterally with mild facet arthropathy. Foramen are patent. L4-L5: Mild disc bulging with slight effacement of ventral thecal sac. Impingement on the traversing L5 nerve roots bilaterally RIGHT greater than LEFT. Small bilateral foraminal protrusions with mild R IGHT greater than LEFT foraminal narrowing. Mild facet arthropathy. L5-S1: RIGHT eccentric disc osteophyte complex with impingement traversing RIGHT S1 nerve root in the subarticular recess. Mild facet arthropathy. Mild RIGHT greater than LEFT foraminal narrowing. Small disc osteophyte complexes in the cervical spine at C5-C6 and C6-C7. Visualized pelvic bony structures: Normal. Paravertebral soft tissues: Normal. MR/MR lumbar spine wo con* [id number] IMPRESSION: 1. Mild lumbar curve. No acute compression. No high-grade central canal stenos is. 2. Disc osteophyte complex L4-L5 impinges the traversing RIGHT greater than LE FT L5 nerve roots in the subarticular recess. Recommend correlation for RIGHT L 5 nerve root symptoms. 3. Mild RIGHT L4-L5 and RIGHT L5-S1 foraminal narrowing. Recommend correlation for RIGHT L4 and L5 nerve root symptoms. 4. RIGHT eccentric disc osteophyte complex L5-S1 impinges the traversing RIGHT S1 nerve root in the subarticular recess. 5. Mild facet arthropathy L3-L5.
== END 2021-10-19 09:20 | disposition home or self-care (01) ==
LOC: RAD 09:22
PROVIDERS: PCP Family Medicine; Visit Provider Nurse Practitioner
DX: M54.51 Vertebrogenic low back pain (principal); M47.816 Spondylosis without myelopathy or radiculopathy, lumbar region; M25.78 Osteophyte, vertebrae
CPT/HCPCS: 72148

== ENCOUNTER → 2023-07-14 08:22 | Outpatient (BNVA) | payer MEDICAID, SELFPAY | PROVIDERS: PCP Family Medicine; Visit Provider Family Medicine | DX: I10 Essential (primary) hypertension (principal); E78.5 Hyperlipidemia, unspecified; D50.9 Iron deficiency anemia, unspecified; G25.81 Restless legs syndrome; F41.1 Generalized anxiety disorder; R10.13 Epigastric pain | CPT/HCPCS: 80053; 80061; 82043; 82728; 83550; 85025 ==

== ENCOUNTER 2023-08-12 08:43 | Outpatient (CLI) | payer MEDICAID, SELFPAY ==
--- NOTE | 2023-08-12 09:15 | US_ITS ---
WS: [id number] Exam: US gall bladder [id number] Date/Time of Exam: 08/12/2023 8:50 AM Reason For Exam: ruq pain Comparison 04/25/2020. The gallbladder appears normal. The common bile duct is not dilated and measures 5.2 mm in greatest d iameter. Increased echogenicity of the liver likely represents hepatic steatosis. There appears to be a small area of fatty sparing in the RIGHT hepatic lobe. No intrahepatic ductal dilatation. Normal R IGHT kidney measures 10.2 x 3.9 x 4.73 cm. The abdominal aorta is normal in caliber. The IVC is paten t with phasic flow. The pancreas is unremarkable as visualized. No free fluid or mass in the abdomen. IMPRESSION: 1. Normal gallbladder ultrasound. 2. Small area of decreased echogenicity in the RIGHT hepatic lobe that has the appearance of fatty sp aring. This is stable in appearance when compared to prior abdominal CT scan performed 04/25/2020. 3. Increased echogenicity of liver likely representing mild hepatic steatosis.
== END 2023-08-12 08:44 | disposition home or self-care (01) ==
LOC: RAD 08:43
PROVIDERS: PCP Family Medicine; Visit Provider Family Medicine
DX: R10.11 Right upper quadrant pain (principal)
CPT/HCPCS: 76705

== ENCOUNTER 2023-08-23 09:57 | Outpatient (CLI) | payer MEDICAID, SELFPAY ==
--- NOTE | 2023-08-23 10:00 | NM_ITS ---
WS: [id number] NUCLEAR MEDICINE HIDA SCAN CLINICAL INFORMATION: RUQ pain TECHNIQUE: Following intravenous administration of 7.3 mCi mCi of technetium 99m mebrofenin, images o f the abdomen were obtained over the course of 60 minutes. Next, gallbladder ejection fraction was de termined by obtaining preprandial and one-hour postprandial images of the gallbladder following oral ingestion of Ensure. COMPARISON: Ultrasound 08/12/2023 FINDINGS: Hepatomegaly. Normal hepatic uptake. Normal hepatic excretion. Normal common bile duct and small dave l activity. Gallbladder is visualized by 30 minutes. No evidence of acute cholecystitis. Gallbladder ejection fraction 81% within normal limits. No evidence of chronic cholecystitis. IMPRESSION: 1. No evidence of acute or chronic cholecystitis. 2. Gallbladder ejection fraction 81% within normal limits.
== END 2023-08-23 09:58 | disposition home or self-care (01) ==
PROVIDERS: PCP Family Medicine; Visit Provider Family Medicine
DX: R10.11 Right upper quadrant pain (principal)
CPT/HCPCS: 78227; A9537

== ENCOUNTER 2023-09-08 05:53 | Day surgery (SDC) | payer MEDICAID, SELFPAY ==
[2023-09-08] VITALS (18 sets, daily range): BP systolic 118–209; BP diastolic 58–107; PULSE 58–86; RESP 12–21; TEMP 36.2–36.6; O2SAT 92–100; BMI 22.4
[2023-09-08] MEDS: sodium chloride 0.9% 1,000 ML 30 ML IV ×2 (06:18→08:19)
--- NOTE | 2023-09-08 06:49 | W.PM.OPSUD ---
Surgery/Procedure H&P Update DATE OF PROCEDURE: September 08, 2023 DATE H&P PERFORMED: 09/01/23 H&P UPDATE INFORMATION: I have reviewed H&P completed within last 30 days, I have examined patient prior to procedure and No changes to prior documentation PREOP DIAGNOSIS: Biliary Colic PLANNED PROCEDURE: Operation Date: 09/08/23 07:00 Proposed Procedures p [id number] lap jonas R10.11(Not Applicable) - Jose Mandujano DO
[2023-09-08] MEDS: ceFAZolin 2,000 MG in sodium chloride 0.9% (plus) 50 ML 100 MG IV (06:53)
--- NOTE | 2023-09-08 07:12 | P.ANESASSM_ITS ---
Pre-Anesthetic Assessment Height/Weight: Height 1.55 m Weight 53.977 kg Temp Pulse Resp BP Pulse Ox O2 Del Method 97.8 F 86 17 165/107 93 Room Air 09/08/23 06:07 09/08/23 06:07 09/08/23 06:07 09/08/23 06:07 09/08/23 06:07 09/08/23 06:11 Preop Diagnosis: Biliary Colic Operation Date: 09/08/23 07:00 Proposed Procedures p 04512 lap jonas R10.11(Not Applicable) - Jose Mandujano, DO Was Beta Charlotte taken within 24 hours: N/A Was Clonidine taken within 24 hours: N/A Last intake: Intake Last Liquid Date 09/07/23 Last Liquid Time 18:00 Last Solid Date 09/07/23 Last Solid Time 18:00 Social No tobacco 0.5 pack(s) per day smoked today Exam alert and oriented x 3 Airway Submandibular: within normal limits Cervical ROM: within normal limits Mallampati: Class II Dentition: false Comments: Comments: Upper denture History/ROS No significant history except as noted and No significant complaints CV/HEM Hypertension GI Gastroesophageal Reflux Disease Metabolic Hyperlipidemia Neuropsych Depression Anesthetic Plan ASA status: 2 Anesthesia: General Risk of > 500 ml blood loss (7ml/kg in children): No Medications/Allergies Home Medications Medication Instructions Recorded Confirmed Last Taken Type hydrocodone 10 mg-acetaminophen 1 tab PO BID PRN Pain, Moderate 06/07/23 09/08/23 09/07/23 History 325 mg tablet pantoprazole 40 mg tablet,delayed 40 mg PO DAILY #30 tabs 07/14/23 09/08/23 09/07/23 Rx release (Protonix) atorvastatin 40 mg tablet 40 mg PO DAILY #90 tabs 07/15/23 09/08/23 09/07/23 Rx fluoxetine 20 mg capsule (Prozac) 20 mg PO DAILY #90 caps 08/11/23 09/08/23 09/07/23 Rx gabapentin 300 mg capsule 300 mg PO .q hs #90 caps 08/11/23 09/08/23 09/07/23 Rx (Neurontin) losartan 100 mg tablet 100 mg PO DAILY #90 tabs 08/11/23 09/08/23 09/07/23 Rx Allergies Allergy/AdvReac Type Severity Reaction Status Date / Time lisinopril Allergy ADR-Cough Verified 09/08/23 06:05 Current Medications Generic Name Dose Route Start Last Admin Trade Name Freq PRN Reason Stop Dose Admin Sodium Chloride 1,000 mls @ 30 mls/hr 09/08/23 06:00 09/08/23 06:18 Sodium Chloride 0.9% IV 09/09/23 05:59 30 mls/hr .Q24H ARIEL Administration PFSH Anesthesia Medical History Chronic low back pain Dyslipidemia Irregular menses Benign essential HTN Chronic pelvic pain in female Surgical History S/P appendectomy 11/18/00-Dx: chronic pelvic pain and polycystic ovary with pelvic adhesions and endometriosis. Preformed by Dr. Aden at [facility] in [place], [place] H/O section 10/09/04- Preformed by Dr. Easton Cornell at [facility] in [place], [place] (GDM 39 1/7 wks gestation Male 7lbs 4ozs) 10/02/02-Preformed by Dr. Easton Cornell at [facility] in [place], [place] (Female 6lbs 7.5ozs nonreassuring heart tones with bradycardia hx of ) H/O dilation and curettage 11/01/08- Dx: Incomplete , Preformed by Dr. Easton Cornell at [facility] in [place], [place] 09/09/03-Dx: incomplete suspected septic Preformed by Dr Easton Cornell at [facility] in [place], [place] S/P tonsillectomy H/O: hysterectomy 11/19/2020- WILL with BSO, diagnostic laparoscopy, midurethral sling and cystoscopy performed by Dr. Florez at [facility] Family History Grandfather Diabetes maternal Hypertension maternal and paternal Stroke maternal Grandmother Hypertension maternal and paternal Father Hypertension Mother Hypertension Heart disease Uterine cancer, Onset Age: 38 Brother Heart disease Family/Other Breast cancer, Onset Age: 42 maternal 1st cousin Denies family history of Colon cancer Ovarian cancer Clotting disorder Hyperlipidemia Anesthesia complication Bleeding disorder Thyroid disease Social History Smoking and tobacco/nicotine status: current every day tobacco/nicotine user cigarettes [ Other cigarette details: 3 cigarettes/day] Alcohol intake: never Substance/Drug Use: never Data Anesthesia Cardiac Studies: No Data to Display
--- NOTE | 2023-09-08 07:31 | P.OP_ITS ---
Operative Report Date of procedure: September 08, 2023 Pre-op diagnosis: Therapy colic Right upper quadrant syndrome Post-op diagnosis: same Procedure done: Laparoscopic cholecystectomy Implants: None Specimens removed/disposition: Gallbladder Surgeon: Jose Mandujano DO Anesthesia: General Estimated blood loss (mL): 5 Complications: None apparent Brief History: This is a very pleasant 58-year-old female who presented to my office with right upper quadrant pain. She was diagnosed with biliary colic and right upper quadrant syndrome, laparoscopic cholecystectomy was indicated. The risks and benefits, especially including a 20 to 30% chance that cholecystectomy does not relieve her symptoms with this diagnosis, were explained to the patient. She is understanding the risks and wished to proceed Procedure: Patient was wheeled into the operative room and placed on the OR table in a supine position. Abdomen was inspected prepped and draped in usual sterile fashion. Time-out was performed and all present were in agreement. A 15 blade scalp was used to make a stab incision in the left upper quadrant and intra- abdominal insufflation was achieved using a Veress needle. After localizing the tissue incisions were made and a 5 millimeter trocar was placed into the umbilicus as well as 2 in the right upper quadrant. A 12 millimeter trocar was placed in the epigastrium. Gallbladder was grasped and elevated. The triangle of Calot was carefully dissected using blunt dissection and electrocautery until the triangle of Calot clearly identified. The cystic duct was clipped proximally and double clipped distally. The duct was then ligated proximally. The cystic artery was doubly clipped and ligated. The gallbladder was then removed from the liver bed using electrocautery. The gallbladder was removed from the abdomen using an Endo-Catch bag through the epigastric incision. The liver bed was inspected and no bleeding was seen. The abdomen was irrigated and suctioned. All ports removed. Skin was washed and dried. Incisions were closed with 4-0 Monocryl in a subcuticular interrupted fashion. Skin glue was applied. Patient tolerated the procedure well.
[2023-09-08] MEDS: lidocaine-epi 2% 20 mL INJ INJECTION (07:39)
[2023-09-08] MEDS: fentaNYL 50 mcg/mL INJ 2mL IVP ×2 (08:03→08:18)
[2023-09-08] MEDS: hyDRALAzine 20 mg/mL INJ 1 mL 10 MG IVP (08:09)
[2023-09-08] MEDS: HYDROmorphone 1 mg/mL INJ 1 mL 0.5 MG IVP (08:35)
[2023-09-08] MEDS: HYDROcodone-acetaminophen 10-325 mg Tablet 1 TAB PO (09:14)
--- NOTE | 2023-09-08 14:14 | ANE.PACU2 ---
Inpatient post-anesthesia follow up: Airway intact: Yes Vital signs: Temperature 97.1 F Pulse Rate 73 Respiratory Rate 16 Blood Pressure 136/67 Pulse Oximetry 93 Oxygen Delivery Me thod Room Air Oxygen Flow Rate 2 Fraction of Inspir ed Oxygen Hydration adequate: Yes Nausea and vomiting: No Pain level: 2 Mental status: Baseline
== END 2023-09-08 09:37 | disposition home or self-care (01) ==
PROVIDERS: PCP Family Medicine; Visit Provider Surgery
PROC: 0FT44ZZ Resection of Gallbladder, Percutaneous Endoscopic Approach (ICD-10-PCS; CPT 47562; principal; 2023-09-08 07:00)
DX: K81.1 Chronic cholecystitis (principal); L92.8 Other granulomatous disorders of the skin and subcutaneous tissue; I10 Essential (primary) hypertension; E78.5 Hyperlipidemia, unspecified; K21.9 Gastro-esophageal reflux disease without esophagitis; F17.210 Nicotine dependence, cigarettes, uncomplicated
CPT/HCPCS: 47562; 88304; J0360; J0690; J1170; J1885; J2250; J2405; J2704; J3010; J3490; J7030

== ENCOUNTER 2023-10-25 11:56 | Outpatient (CLI) | payer MEDICAID, SELFPAY ==
--- NOTE | 2023-10-25 13:00 | USCV_ITS ---
Asha Walker Age: 58 Gender: F : 1965 Exam Date: 10/25/2023 12:02 Ordering Phys: Elsie Leger DO Technologist: CT Exam [place] [facility] [place] Indication: LE PAIN Risk Factors: Previous Vascular Surgery: RIGHT LEFT BP: 160.0 / 94.00 BP: 168.0/ 97.00 0 0 Waveform Velocity (cm/s) Velocity (cm/s) Waveform Triphasic 132.0 Iliac Prox 103.0 Triphasic Triphasic 116.8 Iliac Mid 103.5 Triphasic Triphasic 137.0 Iliac Distal 93.0 Triphasic Triphasic 93.1 COMMUNITY RELATIONS REP 111.0 Triphasic Triphasic 74.0 SFA Prox 103.0 Monophasic Monophasic 214.0 SFA Mid 437.0 Monophasic Monophasic SFA Dist Monophasic 75.0 61.0 Monophasic 78.0 POP 67.0 Monophasic Monophasic 35.0 [employer] 65.0 Monophasic Monophasic 50.0 DPA 80.0 Monophasic 0.7 LOLA 0.7 FINDINGS Resting LOLA 0.7 on the right side bilaterally. Moderate heterogenous plaques in the iliac arteries bilaterally Moderate to heavy in the superficial femoral artery on the right side Heavy heterogenous plaques in the superficial femoral artery on the left Markedly elevated velocity in the left mid SFA Moderate elevated velocity in the right mid SFA CONCLUSIONS 1. Abnormal resting ABIs bilaterally, suggesting moderate peripheral artery disease 2. Elevated velocity at the right mid SFA suggesting greater than 50% stenosis. 3. Elevated velocity at the left mid SFA, suggesting greater than 70% stenosis. 4. Abnormal Doppler waveforms in the infrapopliteal vessels on the left side, may suggest collateral filling Compared to the study from 02/26/2021, there is progression of disease bilaterally. Dr Nickie Grubbs MD [facility] (Electronically Signed) Final Date: 26 October 2023 09:38 S
== END 2023-10-25 11:57 | disposition home or self-care (01) ==
LOC: RAD 11:56
PROVIDERS: PCP Family Medicine; Visit Provider Family Medicine
DX: I73.9 Peripheral vascular disease, unspecified (principal)
CPT/HCPCS: 93925

== ENCOUNTER → 2024-02-16 15:52 | Outpatient (BNVA) | payer MEDICAID, SELFPAY | PROVIDERS: PCP Family Medicine; Visit Provider Family Medicine | DX: E78.5 Hyperlipidemia, unspecified (principal) | CPT/HCPCS: 80053; 80061 ==

== ENCOUNTER 2024-02-28 15:43 | Outpatient (CLI) | payer MEDICAID, SELFPAY ==
--- NOTE | 2024-02-28 15:30 | MM_ITS ---
WS: [id number] BILATERAL 3D TOMOSYNTHESIS DIGITAL SCREENING MAMMOGRAPHY WITH CAD CLINICAL INFORMATION: screening HISTORY: Baseline COMPARISON: None. TECHNIQUE: Bilateral CC and MLO views. FINDINGS: The breasts are composed of heterogeneous fibroglandular density tissue, which can limit the detectio n of small underlying mass lesions. Ovoid nodular density central LEFT breast measuring 9 mm best see n on the cc view. Recommend LEFT breast diagnostic mammography and ultrasound. Unremarkable RIGHT breast. MM/[place] [id number] IMPRESSION: BI-RADS: 0-Incomplete: Need additional imaging evaluation FOLLOW UP: Need Additional Imaging Recommend LEFT breast diagnostic mammography and ultrasound.
== END 2024-02-28 15:44 | disposition home or self-care (01) ==
LOC: RAD 15:44
PROVIDERS: PCP Family Medicine; Visit Provider Family Medicine
DX: Z12.31 Encounter for screening mammogram for malignant neoplasm of breast (principal)
CPT/HCPCS: 77063; 77067

== ENCOUNTER 2024-03-06 09:08 | Outpatient (CLI) | payer MEDICAID, SELFPAY ==
--- NOTE | 2024-03-06 09:00 | CT_ITS ---
WS: [id number] LDCT LUNG CANCER SCREENING TECHNIQUE: Noncontrast CT of the chest with coronal and sagittal reformatted images. CLINICAL INFORMATION: screening COMPARISON: None. DLP: 42.60 mGy.cm DIvol: Mean CTDIvol: 0.70 (mGy) All CT scans at [facility] use at least one of these dose optimization techniques: automat ed exposure control; mA and/or kV adjustment per patient size (includes targeted exams where dose is matched to clinical indication); or iterative reconstruction. FINDINGS: Tiny noncalcified nodule RIGHT upper lobe laterally. Advanced chronic emphysematous changes. No acute pulmonary infiltrates. Few tiny calcified granulomas . Cholecystectomy clips. Normal GE junction. Adrenal glands are normal. Mild thoracic curve. Mild thora cic kyphosis. Ovoid nodule RIGHT breast measuring 10.5 mm upper outer RIGHT breast posterior depth. Recommend ultra sound in further evaluation. CT/CT lung screening [id number] IMPRESSION: 1.Ovoid nodule RIGHT breast measuring 10.5 mm upper outer RIGHT breast posterio r depth. Recommend RIGHT breast ultrasound in further evaluation. LUNG-RADS: 2S-Benign Appearance or Behavior with Significant Findings FOLLOW UP: 12 Month: Continue annual screening with LDCT
== END 2024-03-06 09:09 | disposition home or self-care (01) ==
LOC: RAD 09:10
PROVIDERS: PCP Family Medicine; Visit Provider Family Medicine
DX: F17.219 Nicotine dependence, cigarettes, with unspecified nicotine-induced disorders (principal); N63.11 Unspecified lump in the right breast, upper outer quadrant
CPT/HCPCS: 71271

== ENCOUNTER → 2024-11-21 08:30 | Outpatient (BNVA) | payer MEDICAID, SELFPAY | PROVIDERS: PCP Family Medicine; Visit Provider Family Medicine | DX: E78.5 Hyperlipidemia, unspecified (principal) | CPT/HCPCS: 80053; 80061; 85025 ==

== ENCOUNTER 2024-12-27 07:51 | Outpatient (CLI) | payer MEDICAID, SELFPAY ==
--- NOTE | 2024-12-27 07:53 | US_ITS ---
WS: [id number] BILATERAL 3D TOMOSYNTHESIS DIGITAL DIAGNOSTIC MAMMOGRAPHY WITH CAD CLINICAL INFORMATION: mass left breast, HISTORY: Additional views COMPARISON: 2023 TECHNIQUE: Bilateral CC, MLO, and ML views. FINDINGS: Scattered fibroglandular densities bilaterally. Stable previously described nodule central LEFT breast measuring 8 mm. Asymmetric density upper outer RIGHT breast probably corresponds to the prior CT lung screening findings. Ultrasound of both areas described below ULTRASOUND BREAST BILATERAL TECHNIQUE: Ultrasound bilateral breast focused area of concern. CLINICAL INFORMATION: mass left breast, FINDINGS: RIGHT BREAST: Ultrasound upper outer quadrant with attention to the nodule seen on the prior lung screening CT. Ultrasound upper outer quadrant RIGHT breast at the 9 o'clock position demonstrates an incidental lymph node in this area corresponding to the mammographic findings. This measures 8 x 7 x 5 mm no other suspicious abnormalities. LEFT BREAST: Ultrasound central LEFT breast. In the central LEFT breast retroareolar there is ductal ectasia with an incidental lymph node measuring approximately 8 x 8 mm. No suspicious findings to target for biopsy. US/US breast BI limited* [id number] IMPRESSION: DENSITY: There are scattered areas of fibroglandular density. BI-RADS: 2 - Benign. FOLLOW UP: 1 Year Follow-up Recommend return to annual screening mammography.
--- NOTE | 2024-12-27 08:30 | MM_ITS ---
WS: [id number] BILATERAL 3D TOMOSYNTHESIS DIGITAL DIAGNOSTIC MAMMOGRAPHY WITH CAD CLINICAL INFORMATION: mass left breast, HISTORY: Additional views COMPARISON: 2023 TECHNIQUE: Bilateral CC, MLO, and ML views. FINDINGS: Scattered fibroglandular densities bilaterally. Stable previously described nodule central LEFT breast measuring 8 mm. Asymmetric density upper outer RIGHT breast probably corresponds to the prior CT lung screening findings. Ultrasound of both areas described below ULTRASOUND BREAST BILATERAL TECHNIQUE: Ultrasound bilateral breast focused area of concern. CLINICAL INFORMATION: mass left breast, FINDINGS: RIGHT BREAST: Ultrasound upper outer quadrant with attention to the nodule seen on the prior lung screening CT. Ultrasound upper outer quadrant RIGHT breast at the 9 o'clock position demonstrates an incidental lymph node in this area corresponding to the mammographic findings. This measures 8 x 7 x 5 mm no other suspicious abnormalities. LEFT BREAST: Ultrasound central LEFT breast. In the central LEFT breast retroareolar there is ductal ectasia with an incidental lymph node measuring approximately 8 x 8 mm. No suspicious findings to target for biopsy. MM/MM diag BI tomosynthesis [id number] IMPRESSION: DENSITY: There are scattered areas of fibroglandular density. BI-RADS: 2 - Benign. FOLLOW UP: 1 Year Follow-up Recommend return to annual screening mammography.
== END 2024-12-27 07:52 | disposition home or self-care (01) ==
PROVIDERS: PCP Family Medicine; Visit Provider Family Medicine
DX: N60.42 Mammary duct ectasia of left breast (principal); R92.323 Mammographic fibroglandular density, bilateral breasts; R59.0 Localized enlarged lymph nodes
CPT/HCPCS: 76642; 77062; G0279

== ENCOUNTER 2025-03-15 06:45 | Outpatient (CLI) | payer MEDICAID, SELFPAY ==
--- NOTE | 2025-03-15 08:15 | CT_ITS ---
WS: [id number] LDCT LUNG CANCER SCREENING TECHNIQUE: Noncontrast CT of the chest with coronal and sagittal reformatted images. CLINICAL INFORMATION: screening COMPARISON: 2023 DLP: 45.00 mGy.cm DIvol: Mean CTDIvol: 0.70 (mGy) All CT scans at [facility] use at least one of these dose optimization techniques: automated exposure control; mA and/or kV adjustment per patient size (includes targeted exams where dose is matched to clinical indication); or iterative reconstruction. FINDINGS: Stable tiny noncalcified nodule RIGHT upper lobe laterally. 4 mm nodule LEFT lower lobe along the fissure. Tiny lung nodules at LEFT lung apex. Advanced chronic emphysematous changes. Few tiny calcified granulomas. Cholecystectomy clips. Normal GE junction. Adrenal glands are normal. Mild thoracic curve. Mild thoracic kyphosis. CT/CT lung screening [id number] IMPRESSION: LUNG-RADS: 2-Benign Appearance or Behavior FOLLOW UP: 12 Month: Continue annual screening with LDCT
== END 2025-03-15 06:46 | disposition home or self-care (01) ==
LOC: RAD 06:47
PROVIDERS: PCP Family Medicine; Visit Provider Family Medicine
DX: Z12.2 Encounter for screening for malignant neoplasm of respiratory organs (principal); F17.219 Nicotine dependence, cigarettes, with unspecified nicotine-induced disorders; R91.8 Other nonspecific abnormal finding of lung field
CPT/HCPCS: 71271

== ENCOUNTER 2025-06-06 11:06 | Outpatient (CLI) | payer MEDICAID, SELFPAY ==
--- NOTE | 2025-06-06 11:12 | XRR_ITS ---
PROCEDURE INFORMATION: Exam: XR Lumbosacral Spine Exam date and time: 06/06/2025 11:19 AM Age: 59 years old Clinical indication: Low back pain; Chronic lower back pain; Additional info: Lumbosacral spondylosis TECHNIQUE: Imaging protocol: Radiologic exam of the lumbosacral spine. Views: 6 or more views. Including flexion and extension views. COMPARISON: MR lumbar spine wo con* [id number] 10/19/2021 9:46 AM FINDINGS: Bones/joints: Mild degenerative changes of the lumbar vertebrae. Endplate spurring and disc space narrowing probably most conspicuous at L4-L5 and L5-S1. No evidence of static or dynamic spondylolisthesis. Soft tissues: Unremarkable. Organs: Cholecystectomy clips. XR/XR lumbar spine 6V w f/e [id number] IMPRESSION: Mild degenerative changes of the lumbar vertebrae.
== END 2025-06-06 11:07 | disposition home or self-care (01) ==
PROVIDERS: PCP Family Medicine; Visit Provider Student in an Organized Health Care Education/Training Program
DX: M47.817 Spondylosis without myelopathy or radiculopathy, lumbosacral region (principal); Z90.49 Acquired absence of other specified parts of digestive tract
CPT/HCPCS: 72114

== ENCOUNTER → 2025-06-11 09:15 | Outpatient (BNVA) | payer MEDICAID, SELFPAY | PROVIDERS: PCP Family Medicine; Visit Provider Family Medicine | DX: E53.8 Deficiency of other specified B group vitamins (principal); D64.9 Anemia, unspecified; D50.9 Iron deficiency anemia, unspecified | CPT/HCPCS: 82607; 82728; 83550; 85025 ==